=== PATIENT | male | born 1975 | race Caucasian/White ===

== ENCOUNTER → 2020-06-20 | Outpatient (CLI) | payer OTHER ==
[~2020-06-20] MED LIST: OXYCODONE-APAP1 EAC4 PO
== END ==
LOC: SJCVCIMAG 07:30
PROVIDERS: ATTEND Internal Medicine
DX: I07.1 Rheumatic tricuspid insufficiency (principal); R00.0 Tachycardia, unspecified; I49.3 Ventricular premature depolarization; N20.0 Calculus of kidney; I10 Essential (primary) hypertension; Z87.891 Personal history of nicotine dependence

== ENCOUNTER → 2020-06-30 | Outpatient (CLI) | payer OTHER ==
[~2020-06-30] VITALS: Ht 170.2 cm; Wt 90.0 kg
[~2020-06-30] MED LIST changes: +ALLOPURINOL 10100 M3 PO; +AMBIEN5 MG PO; +LEXAPRO 10 MG T10 M2 PO; +TOPROL XL100 MG PO
[2020-06-30 10:27] LABS: HEMATOCRIT 44.3 % (42.0-52.0); HEMOGLOBIN 15.1 gm/dL (14.0-18.0); MCH 30.8 pg (26.0-34.0); MCHC 34.1 g/dL (28.0-37.0); MCV 90.3 fL (80.0-100.0); RBC 4.9 mil/uL (4.50-6.00); RDW 12.7 % (10.5-14.5)
[2020-06-30 10:33] LABS: CALCIUM 9.2 mg/dL (8.5-10.1); POTASSIUM 3.9 mmol/L (3.5-5.1)
[2020-06-30 11:14] VITALS: BP 123/87
--- NOTE | 2020-07-14 08:57 | CATHLAB ---
[facility] [place] [address] [place] [address] INVASIVE PROCEDURE REPORT Name: BA CARCAMO Room #: REG RYANIsaiah Gutierrez#: [id number] Admission: 06/30/20 Attend Phys: Narinder Soares Discharge: Date of : 75 Report #: [id number] THIS REPORT FOR: cc: Ayla Austin MD, Sequita MD Lammoglia, Francisco J. MD ~ APPROVED REPORT Study performed: 06/30/2020 12:10:29 Patient Details Patient Status: Out-Patient Room #: The patient is a 44 year-old male Event Personnel Narinder Soares Cementer Helper, Suzette Bellaym RN RN, Michell Leiva RTR, Lucius Rivera Roberta Monitor Procedures Performed Art Access - R femoral artery* Left Heart Cath w/or w/o Coronaries [id number] [facility] [id number] Initial Mod Sed Same Phys/QHP Gr [id number] Mod Sed Same Phys/QHP Ea [id number] Hemostasis with Manual pressure, supervision of conscious sedation Indication Chest pain Procedure Narrative The Right Groin^ was infiltrated with 2% Lidocaine subcutaneous anesthesia. A PINNACLE 4FR Sheath #[id number] sheath was inserted into the RFA^. Coronary angiography was performed using coronary diagnostic catheters. The right coronary system was accessed and visualized with a JR4 catheter. The left coronary system was accessed and visualized with a JL4 catheter. The left ventricle was accessed and visualized with a ANGLE PIG catheter. Hemostasis was obtained with manual pressure following sheath removal without any complications. There was no hematoma. Intraoperative Conscious Sedation Sedation start time: 1251 Case end Time: 1325 Versed 3 mg [facility] [address] [place] [address] INVASIVE PROCEDURE REPORT Name: BA CARCAMO Room #: REG CL Brenda#: [id number] Admission: 06/30/20 Attend Phys: Naridner Espinal Discharge: Date of : 75 Report #: [id number] Fluoro Time: 1.50 minutes Dose: DAP 5984.30 cGycm2 924 mGy Contrast Type and Amount: Omnipaque 55 ml Coronary Angiography The patient's coronary anatomy is right dominant. Diagnostic Cath Left Main Large-caliber vessel normal origin bifurcates left anterior descending left circumflex. Free of high-grade disease LAD Moderate caliber type II vessel which courses in the interventricular ventricular sulcus tapering towards the apex. The distal third of a string size of string-like vessel. There is luminal irregularities noted but no high-grade lesions as it gives rise to septal and diagonal branches along its course in the anterior interventricular sulcus Diagonal 1 Moderate to large caliber vessel coursing on the anterolateral wall with luminal irregularities noted with no high-grade lesions present. Diagonal 2 Moderate caliber vessel arising in the mid LAD region without high-grade lesions noted Circumflex Moderate caliber nondominant vessel which gives rise to moderate first marginal branch. This goes on the lateral aspect of the heart not long in length bifurcating in its course with mild irregularities but no high-grade lesions. The circumflex and terminates a small insignificant caliber vessel in the posterior aspect of the left ventricle OM1 Diminutive size vessel without any significant distribution OM2 Small caliber vessel arising from the first marginal branch on the posterolateral aspect of the heart free of high-grade disease OM3 Small caliber vessel arising from the first marginal branch without significant high-grade lesion Right Coronary Large-caliber vessel normal origin coursing the AV groove giving rise to small RV marginal branch. And continues to the crux of the heart giving rise to posterior descending artery which is moderate in caliber and then terminates is to posterior wall branches beyond the crux of the heart. R PDA Small to moderate caliber vessel with proximal 50% lesion in its distal course but no flow-limiting or high-grade lesions are otherwise noted Left Ventriculography Left Ventriculography was not performed. [facility] [address] [place] [address] INVASIVE PROCEDURE REPORT Name: BA CARCAMO Room #: REG Brenda#: [id number] Admission: 06/30/20 Attend Phys: Narinder Espinal Discharge: Date of : 75 Report #: [id number] Hemodynamics The aortic pressure is 113/73 mmHg with a mean of 95 mmHg. The left ventricular pressure is 123/15 mmHg with a mean of mmHg. The left ventricular end diastolic pressure is 22 mmHg. Conclusion 1. Coronary disease mild nonobstructive 2. Normal hemodynamic Recommendations Cardiac Risk Reduction Program Medical Therapy <ELECTRONICALLY SIGNED> By: Narinder Soares MD 07/14/2057 Narinder Soares MD /INF
== END | disposition home or self-care (01) ==
LOC: CATH 09:08
PROVIDERS: ATTEND Internal Medicine
DX: R07.9 Chest pain, unspecified (principal); I25.10 Atherosclerotic heart disease of native coronary artery without angina pectoris; I10 Essential (primary) hypertension; M10.9 Gout, unspecified; F32.9 Major depressive disorder, single episode, unspecified; F41.9 Anxiety disorder, unspecified; K21.9 Gastro-esophageal reflux disease without esophagitis; Z98.890 Other specified postprocedural states; Z79.899 Other long term (current) drug therapy; Z87.442 Personal history of urinary calculi; Z90.49 Acquired absence of other specified parts of digestive tract